=== PATIENT | male | born 1965 | race Caucasian/White ===

== ENCOUNTER 2019-01-01 00:48 | Day surgery (SDC) | payer OTHER ==
[~2019-01-01] VITALS: Ht 175.3 cm; Wt 73.9 kg
[~2019-01-01 00:48] MED LIST: DIPH-911 PO; IBUP-56 PO; IBUPROFEN; MELA5TAB3 PO
[2019-01-01 09:40] VITALS: BP 121/93
[2019-01-01] MEDS ORDERED: PROPOFOL EMUL(*) 10MG/ML 20 ML 40 ML ONE (10:49)
[2019-01-01] MEDS ORDERED: LIDOCAINE MPF 1% 5 ML VIAL ONE (10:49)
[2019-01-01] MEDS ORDERED: NORMOSOL R SOLN(*) 1000 ML BAG 1,000 ML IV PRN (11:30)
[2019-01-01] MEDS ORDERED: LIDOCAINE/SOD BICARB 8.4% SYR ID ONE (11:30)
[2019-01-01 11:33] VITALS: BP 101/76
--- NOTE | 2019-01-01 11:41 | NUR ---
Supplemental oxygen reduced to 5L/min. O2 sat 98%. no compensation from pulse or respirations. will continue to monitor.
--- NOTE | 2019-01-01 11:50 | NUR ---
Patient supplemental oxygen removed. O2 saturation at 95%. pulse 76 bpm, respirations 16
--- NOTE | 2019-01-01 11:55 | NUR ---
Patient requests water.
[2019-01-01 12:05] VITALS: BP 113/87
[2019-01-01 12:06] VITALS: BP 111/86
--- NOTE | 2019-01-01 12:10 | NUR ---
Orthostatic vitals taken. patient tolerated well. see vitals for report. patient up to bathroom, ambulates without assistance. able to void bladder
--- NOTE | 2019-01-01 12:25 | NUR ---
patient walked out.
== END 2019-01-01 12:22 | disposition home or self-care (01) ==
LOC: OR 00:48
PROVIDERS: ATTEND Family Medicine
DX: Z12.11 Encounter for screening for malignant neoplasm of colon (principal)
CPT/HCPCS: 00812; 45378; J2001; J2704